=== PATIENT | male | born 1980 | race African-American/Black ===

== ENCOUNTER 2018-07-02 00:04 | Emergency (ER) | payer OTHER ==
[2018-07-02] MEDS: HYDROCODONE/APAP (10/325) TAB PO (01:28)
[2018-07-02] MEDS: DIPHTH/TET/ACEL PERTUSS (ADULT) 0.5 ML VIAL IM* (01:30)
[2018-07-02] MEDS: CEFAZOLIN 1 GM INJ IM (04:10)
[2018-07-02] MEDS: LIDOCAINE 1%/EPI (MDV) 50 ML INJ INJ (04:36)
[2018-07-02] MEDS: BACITRACIN 0.9 GM OINT TOP (05:57)
== END 2018-07-02 06:05 | disposition home or self-care (01) ==
LOC: FTE 00:04
DX: S81.011A Laceration without foreign body, right knee, initial encounter (principal); S01.21XA Laceration without foreign body of nose, initial encounter; S02.2XXB Fracture of nasal bones, initial encounter for open fracture; V18.4XXA Pedal cycle driver injured in noncollision transport accident in traffic accident, initial encounter; Y92.410 Unspecified street and highway as the place of occurrence of the external cause; Z23 Encounter for immunization
CPT/HCPCS: 12004; 70450; 70486; 72125; 73562; 73590; 90471; 90715; 96372; 99285-25

== ENCOUNTER 2018-07-11 15:05 | Emergency (ER) | payer OTHER | END 2018-07-11 17:51 | disposition home or self-care (01) | LOC: FTE 15:05 | DX: Z48.01 Encounter for change or removal of surgical wound dressing (principal); Z87.891 Personal history of nicotine dependence | CPT/HCPCS: 99283; Z7502 ==